=== PATIENT | female | born 1990 | race Caucasian/White ===

== ENCOUNTER 2023-03-11 21:18 | Outpatient (CLI) | payer BC | END 2023-03-11 21:19 | disposition critical access hospital (66) | LOC: EMS 21:18 | DX: O04.6 Delayed or excessive hemorrhage following (induced) termination of pregnancy (principal); R10.30 Lower abdominal pain, unspecified; R42 Dizziness and giddiness | CPT/HCPCS: A0425; A0429 ==

== ENCOUNTER 2023-03-11 21:28 | Day surgery (SDC) | payer BC ==
[2023-03-11 21:57] LABS: BASOPHILS # (AUTO) 0.1 10^3/uL (0.0-0.1); BASOPHILS % (AUTO) 0.3 %; EOSINOPHILS % (AUTO) 0.3 %; HCT - HEMATOCRIT 31.6 % (37.0-47.0); LYMPHOCYTES # (AUTO) 1.5 10^3/uL (1.5-3.5); LYMPHOCYTES % (AUTO) 9.5 %; MEAN CORPUSCULAR HEMOGLOBIN 32.3 pg (27.0-31.0); MEAN CORPUSCULAR HGB CONC 34.8 g/dL (32.0-36.0); MEAN CORPUSCULAR VOLUME 92.7 fL (81.0-99.0); MONOCYTES # (AUTO) 0.8 10^3/uL (0.0-1.0); MONOCYTES % (AUTO) 4.8 %; NEUTROPHILS # (AUTO) 13.4 10^3/uL (1.5-6.6); NEUTROPHILS % (AUTO) 84.7 %; PLT - PLATELET COUNT 330 10^3/uL (130-450); RED BLOOD COUNT 3.41 10^6/uL (4.20-5.40); WHITE BLOOD COUNT 15.8 x10^3/uL (4.8-10.8)
[2023-03-11 21:58] LABS: INR 1.2 (0.8-1.2); PT - PROTHROMBIN TIME 12.8 secs (9.9-12.6)
[2023-03-11 22:05] LABS: ALBUMIN 3.5 g/dL (3.2-5.5); ALBUMIN/GLOBULIN RATIO 1.3 (1.0-2.2); BILIRUBIN,TOTAL 0.5 mg/dL (0.2-1.0); CALCIUM 8.6 mg/dL (8.5-10.3); CREATININE 0.7 mg/dL (0.4-1.0); POTASSIUM 3.5 mmol/L (3.5-5.0); TOTAL PROTEIN 6.3 g/dL (6.7-8.2)
--- NOTE | 2023-03-11 22:20 | ED Physician Documentation ---
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 Patient lives in [place] and is visiting [facility]. Approximately 2 weeks ago, she had an outpatient ultrasound in [place] ([place]) To assess her . She says that at the time of the ultrasound 2 weeks ago, she was approximately 9 weeks . As was her first ultrasound of the , and she is prima . Unfortunately, the ultrasound showed a missed (patient states "the fetus had stopped growing"). She was subsequently prescribed a one-time dose of misoprostol, which she took 8 days ago. She also was advised to take ibuprofen and was prescribed an antinausea medication. Over the ensuing 4-5 days after taking the misoprostol. She experienced varying degrees of suprapubic cramping pain radiating to her lower back as well as vaginal bleeding, but then the pain/cramping and vaginal bleeding nearly resolved. She had mild and episodic cramping and bleeding over the past 3 days. However, at approximately 5:30 PM this evening, she had a sudden recurrence of the suprapubic cramping radiating to her back that was more severe than it had been before, as well as worse vaginal bleeding then she had had previously. The bleeding this evening and tonight included clots (patient did not note any blood clots previously). Review of Systems Constitutional: denies: Fever, Chills, Sweats Cardiac: reports: Reviewed and negative Respiratory: reports: Reviewed and negative GI: reports: Abdominal Pain (suprapubic). denies: Nausea, Vomiting : reports: Vaginal bleeding PD PAST MEDICAL HISTORY - Past Medical History Past Medical History: No - Allergies Allergies/Adverse Reactions: Allergies Allergy/AdvReac Type Severity Reaction Status Date / Time No Known Drug Allergies Allergy Verified 03/11/23 23:57 PD ED PE NORMAL - Vitals Vital signs reviewed: Yes - General General: Alert and oriented X 3, No acute distress, Well developed/nourished - Cardiac Cardiac: RRR, No murmur - Respiratory Respiratory: No respiratory distress, Clear bilaterally - Abdomen Abdomen: Soft, Non distended, Other (mild TTP across lower abomen and anterior pelvis without rebound or guarding) - Derm Derm: Normal color, Warm and dry Results - Vitals Vitals: Vital Signs - 24 hr 03/11/23 03/11/23 03/12/23 21:32 21:36 01:02 Temperature 37.2 C 36.4 C L Heart Rate 100 108 H 101 H Heart Rate [ Brachial] Respiratory 16 16 20 Rate Blood Pressure 130/80 149/96 H 127/90 H Blood Pressure [Right Brachial artery] O2 Saturation 97 99 100 03/12/23 03/12/23 03/12/23 01:06 01:11 01:15 Temperature 36.3 C L 36.5 C 36.5 C Heart Rate 90 97 80 Heart Rate [ Brachial] Respiratory 20 20 12 Rate Blood Pressure 115/89 H 110/73 119/88 H Blood Pressure [Right Brachial artery] O2 Saturation 100 100 100 03/12/23 03/12/23 03/12/23 01:28 01:40 02:03 Temperature 36.5 C 36.5 C 36.8 C Heart Rate 82 74 Heart Rate [ 78 Brachial] Respiratory 22 12 18 Rate Blood Pressure 122/79 111/86 H Blood Pressure 105/76 [Right Brachial artery] O2 Saturation 100 100 100 03/12/23 02:45 Temperature 37.1 C Heart Rate Heart Rate [ 86 Brachial] Respiratory 18 Rate Blood Pressure Blood Pressure 120/66 [Right Brachial artery] O2 Saturation 99 Oxygen O2 Source Room air - Labs Labs: Microbiology 03/11/23 23:06 Urine Culture - Preliminary Urine,Clean Catch CULTURE IN PROGRESS. RESULTS TO FOLLOW. Laboratory Tests 03/11/23 03/11/23 03/11/23 21:39 21:39 21:39 WBC 15.8 H RBC 3.41 L Hgb 11.0 L Hct 31.6 L MCV 92.7 MCH 32.3 H MCHC 34.8 RDW 12.0 Plt Count 330 MPV 10.0 Neut # (Auto) 13.4 H Lymph # (Auto) 1.5 Hall # (Auto) 0.8 Eos # (Auto) 0.0 Baso # (Auto) 0.1 Absolute Nucleated RBC 0.00 Nucleated RBC % 0.0 PT INR APTT Sodium 136 Potassium 3.5 Chloride 105 Carbon Dioxide 19 L Anion Gap 12.0 BUN 11 Creatinine 0.7 Estimated GFR (MDRD) 95 Glucose 121 H Calcium 8.6 Total Bilirubin 0.5 AST 16 ALT 12 Alkaline Phosphatase 31 L Total Protein 6.3 L Albumin 3.5 Globulin 2.8 Albumin/Globulin Ratio 1.3 Lipase 34 HCG, Quant Urine Color Urine Clarity Urine pH Ur Specific [place] Urine Protein Urine Glucose (UA) Urine Ketones Urine Occult Blood Urine Nitrite Urine Bilirubin Urine Urobilinogen Ur Leukocyte Esterase Urine RBC Urine WBC Ur Squamous Epith Cells Urine Bacteria Ur Microscopic Review Urine Culture Comments Blood Type O POSITIVE Blood Type Recheck Antibody Screen NEGATIVE 03/11/23 03/11/23 03/11/23 21:39 21:39 22:40 WBC RBC Hgb Hct MCV MCH MCHC RDW Plt Count MPV Neut # (Auto) Lymph # (Auto) Hall # (Auto) Eos # (Auto) Baso # (Auto) Absolute Nucleated RBC Nucleated RBC % PT 12.8 H INR 1.2 APTT 25.0 Sodium Potassium Chloride Carbon Dioxide Anion Gap BUN Creatinine Estimated GFR (MDRD) Glucose Calcium Total Bilirubin AST ALT Alkaline Phosphatase Total Protein Albumin Globulin Albumin/Globulin Ratio Lipase HCG, Quant 1635.00 Urine Color Urine Clarity Urine pH Ur Specific [place] Urine Protein Urine Glucose (UA) Urine Ketones Urine Occult Blood Urine Nitrite Urine Bilirubin Urine Urobilinogen Ur Leukocyte Esterase Urine RBC Urine WBC Ur Squamous Epith Cells Urine Bacteria Ur Microscopic Review Urine Culture Comments Blood Type Blood Type Recheck O POSITIVE Antibody Screen 03/11/23 23:06 WBC RBC Hgb Hct MCV MCH MCHC RDW Plt Count MPV Neut # (Auto) Lymph # (Auto) Hall # (Auto) Eos # (Auto) Baso # (Auto) Absolute Nucleated RBC Nucleated RBC % PT INR APTT Sodium Potassium Chloride Carbon Dioxide Anion Gap BUN Creatinine Estimated GFR (MDRD) Glucose Calcium Total Bilirubin AST ALT Alkaline Phosphatase Total Protein Albumin Globulin Albumin/Globulin Ratio Lipase HCG, Quant Urine Color LT RED Urine Clarity HAZY Urine pH 7.5 Ur Specific [place] 1.010 Urine Protein 100 H Urine Glucose (UA) NEGATIVE Urine Ketones TRACE Urine Occult Blood LARGE H Urine Nitrite NEGATIVE Urine Bilirubin NEGATIVE Urine Urobilinogen 0.2 (NORMAL) Ur Leukocyte Esterase SMALL H Urine RBC TNTC H Urine WBC 0-3 Ur Squamous Epith Cells RARE Squamous Urine Bacteria Rare Ur Microscopic Review INDICATED Urine Culture Comments INDICATED Blood Type Blood Type Recheck Antibody Screen PD Medical Decision Making - ED course Complexity details: reviewed results, re-evaluated patient, considered differential, d/w patient ED course: Patient has mild leukocytosis on CBC (white blood cell count of 15.8). Unremarkable basic metabolic profile. Her quantitative hCG is 1635. At this time, the military technology manager is not on duty nor on-call. I discussed this patient's case with the on-call [facility] (Dr. Najera), and she evaluated the patient in the emergency department, subsequently took patient to the OR for D&C. Departure - Departure Disposition: ED Transfer to [facility] Clinical Impression: Incomplete miscarriage Condition: Stable Discharge Date/Time: 03/12/23 01:59
[2023-03-11 23:14] LABS: BILIRUBIN,URINE NEGATIVE (NEGATIVE); GLUCOSE, URINE (UA) NEGATIVE (NEGATIVE); KETONES,URINE (UA) TRACE mg/dL (NEGATIVE); LEUKOCYTE ESTERASE, URINE SMALL (NEGATIVE); NITRITE,URINE NEGATIVE (NEGATIVE); OCCULT BLOOD,URINE LARGE (NEGATIVE); PH,URINE 7.5 PH (5.0-7.5); PROTEIN,URINE 100 mg/dL (NEGATIVE); UROBILINOGEN,URINE 0.2 (NORMAL) E.U./dL (NORMAL)
[2023-03-11 23:22] LABS: CLARITY,URINE HAZY (CLEAR)
[2023-03-11 23:23] LABS: BACTERIA,URINE Rare /HPF (None Seen); RBC,URINE TNTC /HPF (0-5); SQUAMOUS EPITHELIAL CELL,UR RARE Squamous (<= Few); WBC,URINE 0-3 /HPF (0-5)
[2023-03-11] MEDS ORDERED: SODIUM CHLORIDE FLUSH 0.9% 10 ML SYRINGE IVP PRN (23:46)
--- NOTE | 2023-03-11 23:53 | CONSULTATION NOTE ---
Surgery Consult - Admit Date Hospital Admission Date: 03/11/23 - Consult Date Consult Date: 03/11/23 - Chief Complaint Chief Complaint: incomplete miscarriage - Vital Signs Vital Signs: Last Vital Signs Temp 98.9 F 03/11/23 21:32 Pulse 108 H 03/11/23 21:36 Resp 16 03/11/23 21:36 BP 149/96 H 03/11/23 21:36 Pulse Ox 99 03/11/23 21:36 O2 Flow Rate - Lab Results Result Diagrams: 03/11/23 21:39 03/11/23 21:39 - Consultation Note Consultation Note: found to have a missed ab 2 weeks ago. was 8 week size, but 11 weeks ga. patient has uls on her phone portal. quat was 53,000. blood type O+. took misoprostol 1 week ago. bleeding and lots of tissue, crmaping. thought it was over then today started with back pain and heavy bleeding again. quant here 1 600. on exam moderate clot coming from cervix. no tissue to remove with ring forceps. assessment: incomplete ab Plan: Call in OR team for D&C. discussed with pateint and she agrees. ready to be done with this.
[2023-03-12] MEDS ORDERED: METOCLOPRAMIDE 10 MG/2 ML VIAL IVP PRN (00:14)
[2023-03-12] MEDS ORDERED: MORPHINE 2 MG/ML CARPUJECT IVP PRN (00:14)
[2023-03-12] MEDS ORDERED: NALOXONE 0.4 MG/ML VIAL IVP PRN (00:14)
[2023-03-12] MEDS ORDERED: HYDROmorphone 0.5 MG/0.5 ML SYRINGE IVP PRN (00:14)
[2023-03-12] MEDS ORDERED: fentaNYL 100 MCG/2 ML VIAL IVP PRN (00:14)
[2023-03-12] MEDS ORDERED: ATROPINE ABBOJECT 1 MG/10 ML SYRINGE IVP PRN (00:14)
[2023-03-12] MEDS ORDERED: ePHEDrine 50 MG/ML VIAL IVP PRN (00:14)
[2023-03-12] MEDS ORDERED: ONDANSETRON 4 MG/2 ML VIAL IVP PRN ×2 (00:14→01:15)
--- NOTE | 2023-03-12 00:14 | ANESTHESIA ---
Pre-Anesthesia VS, & Labs - Diagnosis incomplete AB - Procedure suction D&C Vital Signs: Temp Pulse Resp BP Pulse Ox O2 Flow Rate 37.2 C 108 H 16 149/96 H 99 03/11/23 21:32 03/11/23 21:36 03/11/23 21:36 03/11/23 21:36 03/11/23 21:36 Height: 5 ft 5 in Weight (kg): 71.9 kg Body Mass Index: 26.4 BMI Classification: Overweight - NPO >8 hours - Is Patient ?: Yes ( missed AB) - Lab Results Current Lab Results: Laboratory Tests 03/11/23 22:40: Blood Type Recheck O POSITIVE 03/11/23 21:39: PT 12.8 H, INR 1.2, APTT 25.0 03/11/23 21:39: HCG, Quant 1635.00 03/11/23 21:39: Sodium 136, Potassium 3.5, Chloride 105, Carbon Dioxide 19 L, Anion Gap 12.0, BUN 11, Creatinine 0.7, Estimated GFR (MDRD) 95, Glucose 121 H, Calcium 8.6, Total Bilirubin 0.5, AST 16, ALT 12, Alkaline Phosphatase 31 L, Total Protein 6.3 L, Albumin 3.5, Globulin 2.8, Albumin/Globulin Ratio 1.3, Lipase 34 03/11/23 21:39: WBC 15.8 H, RBC 3.41 L, Hgb 11.0 L, Hct 31.6 L, MCV 92.7, MCH 32.3 H, MCHC 34.8, RDW 12.0, Plt Count 330, MPV 10.0, Neut # (Auto) 13.4 H, Lymph # (Auto) 1.5, [place] # (Auto) 0.8, Eos # (Auto) 0.0, Baso # (Auto) 0.1, Absolute Nucleated RBC 0.00, Nucleated RBC % 0.0 03/11/23 21:39: Blood Type O POSITIVE, Antibody Screen NEGATIVE Lab results reviewed: Yes Fish Bones: 03/11/23 21:39 03/11/23 21:39 Home Medications and Allergies Active Medications Sodium Chloride (Sodium Chloride Flush 0.9% 10 Ml Syringe) 10 ml IVP 0100,0900 ,1700 BEATRIZ Sodium Chloride (Sodium Chloride Flush 0.9% 10 Ml Syringe) 10 ml IVP PRN PRN PRN Reason: NEEDED PER PROVIDER ORDERS Allergies/Adverse Reactions: Allergies Allergy/AdvReac Type Severity Reaction Status Date / Time No Known Drug Allergies Allergy Verified 03/11/23 23:57 Anes History & Medical History - Anesthetic History Anesthesia Complications: reports: No previous complications Family history of Anesthesia Complications: Denies Family history of Malignant Hyperthermia: Denies - Medical History Cardiovascular: reports: None Pulmonary: reports: None Endocrine/Autoimmune: reports: None Skin: reports: None Psychosocial: reports: Cannabis (remote hx) History of Cancer?: No Exam General: Alert, Oriented x3, Cooperative Dental: WNL Mouth Openin Fingerbreadth Neck Mobility: Normal Thyromental Distance: less than 4 cm Respiratory: Lungs clear, Normal breath sounds, No respiratory distress Cardiovascular: Regular rate Neurological: Normal speech Mental/Cognitive Status: Alert/Oriented X3, Normal for patient Cognitive Status: Within normal limits Plan Anesthesia Type: Total IV Consent for Procedure(s) Verified and Reviewed: Yes Code Status: Attempt Resuscitation ASA classification: 1-Healthy patient Is this case an emergency?: Yes
[2023-03-12] MEDS ORDERED: MIDAZOLAM 2 MG/2 ML VIAL ONE (00:20)
[2023-03-12] MEDS ORDERED: PROPOFOL 200 MG/20 ML VIAL IVP ONE (00:21)
[2023-03-12] MEDS ORDERED: LIDOCAINE-PF 2% 10 ML AMP SUBQ ONE (00:28)
[2023-03-12] MEDS ORDERED: METHYLERGONOVINE 0.2 MG/ML VIAL ONE (00:40)
[2023-03-12] MEDS ORDERED: SODIUM CHLORIDE FLUSH 0.9% 10 ML SYRINGE IVP SCH (01:00)
[2023-03-12] MEDS ORDERED: LACTATED RINGERS 1,000 ML IV SCH (01:00)
[2023-03-12] MEDS ORDERED: LACTATED RINGERS 1,000 ML IV ONE (01:01)
[2023-03-12] MEDS ORDERED: oxyCODONE 5 MG TABLET PO PRN (01:15)
--- NOTE | 2023-03-12 01:21 | OPERATIVE REPORT ---
Operative Report - General Procedure Date: 03/12/23 Planned Procedure: suction curettage of uterus. Pre-Op Diagnosis: incomplete Procedure Performed: suction curettage of uterus Post Op Diagnosis: incomplete - Procedure Note Primary Surgeon: Jaye Najera MD Anesthesia Provider: Jarocho De Leon CRNA Anesthesia Technique: MAC Pathology: products of conception IV Fluids (mL): 500 Estimated Blood Loss (mL): 20 Urine Output (mL): 0 Indications: bleeding after misoprostol given for missed Findings: small amount of tissue from uterus. sounded to 9 cm. os open. Complications: none - Other Other Information/Narrative: patient has signed consents and procedure has been explained. brought to OR. IV sedation given by AMILCAR. legs placed in Ronnie stirrups. prepped with hibclens. exam done. os open. speculum placed. cervix grasped with ring forceps. [address] suction turned on and slowly went up to green zone. Tissue seen coming through tube. Curette moved all around uterus and no further tissue came out. uterus felt empty. Methergine 0.2 mg given by AMILCAR. Patient awakened and brought to the recovery room in stable condition.
--- NOTE | 2023-03-12 01:31 | ANESTHESIA POST OP EVALUATION ---
Anesthesia Post Eval - Post Anesthesia Eval Vitals: Last Vital Signs Temp 36.5 C 03/12/23 01:28 Pulse 82 03/12/23 01:28 Resp 22 03/12/23 01:28 BP 122/79 03/12/23 01:28 Pulse Ox 100 03/12/23 01:28 O2 Flow Rate CV Function Including HR & BP: Stable Pain Control: Satisfactory Nausea & Vomiting: Negative Mental Status: Baseline Respiratory Status: Airway Patent Hydration Status: Satisfactory Anesthesia Complications: None
[2023-03-12] MEDS ORDERED: KETOROLAC 15 MG/ML VIAL ONE (01:34)
[2023-03-12] MEDS ORDERED: KETOROLAC 30 MG/ML VIAL IVP SCH (02:00)
[2023-03-12] MEDS ORDERED: ACETAMINOPHEN 500 MG TABLET PO SCH (02:00)
[2023-03-12 02:59] VITALS: BP 120/66
[2023-03-12] MEDS ORDERED: IBUPROFEN 600 MG TABLET PO SCH (06:00)
[2023-03-12] MEDS ORDERED: DOCUSATE SODIUM 100 MG CAPSULE PO SCH (09:00)
== END 2023-03-12 03:25 | disposition home or self-care (01) ==
LOC: ED 21:28 → SDS 03-12 00:05 → MS2 03-12 01:30 → UNDOADMIN 03-12 01:30 → SDS 03-12 03:25
PROVIDERS: ATTEND Obstetrics & Gynecology
PROC: 10D17Z9 Manual Extraction of Products of Conception, Retained, Via Natural or Artificial Opening (ICD-10-PCS; principal; 2023-03-12)
DX: O03.4 Incomplete spontaneous abortion without complication (principal)
CPT/HCPCS: 36415; 59812; 80053; 81001; 83690; 84702; 85025; 85610; 85730; 86850; 86900; 86901; 87086; 99284; 99285; A9270; J2210; J7120; 81003